=== PATIENT | male | born 1985 | race Caucasian/White ===

== ENCOUNTER 2018-03-13 22:07 | Emergency (ER) | payer SELFPAY ==
[~2018-03-13] VITALS: Ht 165.1 cm; Wt 70.0 kg
[2018-03-13] MEDS ORDERED: LORazepam 2 MG/ML VIAL IM ONE (22:45)
[2018-03-13] MEDS ORDERED: DiphenhydrAMINE HCL 50 MG/ML VIAL IM ONE (22:45)
[2018-03-13] MEDS ORDERED: HALOPERIDOL LACTATE 5 MG/ML VIAL IM ONE (22:45)
[2018-03-13] MEDS ORDERED: HIV MED PO (22:48)
[2018-03-13] MEDS ORDERED: EFAV1TAB PO (22:48)
[2018-03-14 02:35] VITALS: BP 133/70
== END 2018-03-14 02:38 | disposition home or self-care (01) ==
LOC: EMS 22:11
DX: F29 Unspecified psychosis not due to a substance or known physiological condition (principal); F15.10 Other stimulant abuse, uncomplicated; F17.210 Nicotine dependence, cigarettes, uncomplicated
CPT/HCPCS: 96372; 99291; 99406; J1200; J1630; J2060

== ENCOUNTER 2019-01-17 19:26 | Emergency (ER) | payer SELFPAY ==
[~2019-01-17] VITALS: Ht 170.2 cm; Wt 79.5 kg
[~2019-01-17 19:26] MED LIST: EFAV1TAB PO; HIV MED PO
[2019-01-17 20:43] LABS: GLUCOSE,POINT OF CARE 77 MG/DL (70-110)
[2019-01-17] MEDS ORDERED: LIDOCAINE 1% 10 ML VIAL INJ ONE (21:45)
[2019-01-17] MEDS ORDERED: BACITRACIN 0.9 GM PACKET OINTMENT TP ONE (22:15)
[2019-01-17 22:30] VITALS: BP 135/73
== END 2019-01-17 22:48 | disposition home or self-care (01) ==
LOC: EMS 19:28
DX: S91.201A Unspecified open wound of right great toe with damage to nail, initial encounter (principal); S00.81XA Abrasion of other part of head, initial encounter; S70.211A Abrasion, right hip, initial encounter; F32.9 Major depressive disorder, single episode, unspecified; E78.00 Pure hypercholesterolemia, unspecified; F19.90 Other psychoactive substance use, unspecified, uncomplicated; X58.XXXA Exposure to other specified factors, initial encounter; Y93.89 Activity, other specified; Y92.89 Other specified places as the place of occurrence of the external cause; Y99.8 Other external cause status
CPT/HCPCS: 82962; 99283; J3490

== ENCOUNTER 2021-12-07 12:48 | Inpatient (IN) | payer OTHER, MEDICAID ==
[~2021-12-07] VITALS: Ht 165.1 cm; Wt 62.9 kg
[2021-12-07] MEDS ORDERED: HALOPERIDOL LACTATE 5 MG/ML VIAL IM ONE (14:00)
[2021-12-07] MEDS ORDERED: DiphenhydrAMINE HCL 50 MG/ML VIAL IM ONE (14:00)
[2021-12-07] MEDS ORDERED: LORazepam 2 MG/ML VIAL IM ONE (14:00)
[2021-12-07 14:53] LABS: BASOPHILS % (AUTO) 0.3 % (0.0-2.0); EOSINOPHILS % (AUTO) 0 % (1.0-6.0); HEMATOCRIT 40.2 % (41-53); HEMOGLOBIN 13.6 g/dL (13.5-17.5); LYMPHOCYTES # (AUTO) 1.1 K/uL (1.0-4.8); MEAN CORPUSCULAR HEMOGLOBIN 29.4 pg (26.0-34.0); MEAN CORPUSCULAR HGB CONC 33.8 G/dL (31.0-37.0); MEAN CORPUSCULAR VOLUME 87 fL (80-100); MONOCYTES # (AUTO) 0.7 K/uL (0.1-1.0); MONOCYTES % (AUTO) 7.4 % (2.0-9.0); NEUTROPHILS # (AUTO) 7.6 K/uL (1.8-7.7); NEUTROPHILS % (AUTO) 80.3 % (40.0-70.0); PLATELET COUNT (AUTO) 249 K/uL (150-450); RED BLOOD CELL COUNT(AUTO) 4.62 MIL/uL (4.50-5.90); RED CELL DISTRIBUTION WIDTH 13.9 % (11.5-14.5)
[2021-12-07 15:10] LABS: ANION GAP 14 mmol/L (8-16); CALCIUM, TOTAL 8.7 mg/dL (8.8-10.5); CARBON DIOXIDE 24 mmol/L (22-29); CHLORIDE 100 mmol/L (98-107); CREATININE 1.29 mg/dL (0.60-1.30); GLOMERULAR FILTR. RATE CALC > 60 mL/min (>60); GLUCOSE,RANDOM 92 mg/dL (70-110); POTASSIUM 3.4 mmol/L (3.5-5.1); SODIUM SERUM 138 mmol/L (136-145); UREA NITROGEN, BLOOD 40 mg/dL (7-18)
[2021-12-07 15:15] LABS: ALANINE AMINOTRANSFERASE 135 U/L (12-78); ALBUMIN 3.7 g/dL (3.4-5.0); ALKALINE PHOSPHATASE 53 U/L (46-116); ASPARTATE AMINOTRANSFERASE 131 U/L (15-37); BILIRUBIN,TOTAL 2.4 mg/dL (0.1-1.0); TOTAL PROTEIN, SERUM 7.4 g/dL (6.4-8.2)
[2021-12-07] MEDS ORDERED: ZOLPIDEM TARTRATE 10 MG TABLET PO PRN (15:45)
[2021-12-07] MEDS ORDERED: HALOPERIDOL 5 MG TABLET PO PRN (15:45)
[2021-12-08] MEDS ORDERED: INFLUENZA VIRUS VACCINE QVS 2021-22 (6MO+)/PF 60 MCG/0.5 ML SYRINGE IM. ONE (05:15)
[2021-12-08] MEDS ORDERED: PNEUMOCOCCAL VACCINE POLYVALENT 0.5 ML VIAL [PPSV23] IM. ONE (05:15)
[2021-12-08] MEDS ORDERED: MAG HYDROX/AL HYDROX/SIMETH ES 30 ML SUSPENSION UDCUP PO PRN (07:00)
[2021-12-08] MEDS ORDERED: NICOTINE 14 MG/24 HOUR PATCH TD PRN (07:00)
[2021-12-08] MEDS ORDERED: GuaiFENesin/D-METHORPHAN [SUGAR-FREE] 200-20MG/10 ML SYRUP UDCUP PO PRN (07:00)
[2021-12-08] MEDS ORDERED: ACETAMINOPHEN 325 MG TABLET PO PRN (07:00)
[2021-12-08] MEDS ORDERED: ONDANSETRON HCL 4 MG TABLET PO PRN (07:00)
[2021-12-08] MEDS ORDERED: PETROLATUM,WHITE 28 GM JELLY TP PRN (07:00)
[2021-12-08] MEDS ORDERED: MAGNESIUM HYDROXIDE SUSPENSION 30 ML UDCUP PO PRN (07:00)
[2021-12-08] MEDS ORDERED: ALBUTEROL SULFATE HFA 90 MCG/PUFF 8 GM INHALER IH PRN (07:00)
[2021-12-08] MEDS ORDERED: DOCUSATE SODIUM 100 MG CAPSULE PO PRN (07:00)
[2021-12-08] MEDS ORDERED: CloNIDine HCL 0.1 MG TABLET PO PRN (07:00)
[2021-12-08] MEDS ORDERED: IBUPROFEN 400 MG TABLET PO PRN (07:00)
[2021-12-08] MEDS ORDERED: LOPERAMIDE HCL 2 MG CAPSULE PO PRN (07:00)
[2021-12-08] MEDS: TENOFOVIR PO SCH (09:00)
[2021-12-08] MEDS: EFAVIRENZ PO SCH (09:00)
[2021-12-08] MEDS: EMTRICITAB PO SCH (09:00)
[2021-12-08 16:45] VITALS: BP 100/65
[2021-12-08] MEDS: LORazepam 2 MG TABLET PO PRN (20:42)
[2021-12-09 04:44] VITALS: BP 114/75
[2021-12-09] MEDS: EMTRICITAB PO SCH (08:45)
[2021-12-09] MEDS: MULTIVITAMINS WITH MINERALS, THERAPEUTIC TABLET PO SCH (08:45)
[2021-12-09] MEDS: TENOFOVIR PO SCH (08:45)
[2021-12-09] MEDS: EFAVIRENZ PO SCH (08:45)
[2021-12-09] MEDS: LORazepam 2 MG TABLET PO PRN (08:45)
[2021-12-09 08:48] LABS: HEMOGLOBIN A1C 5.8 % (3.8-5.6)
[2021-12-09 09:04] LABS: CHOL/HDL RATIO 3.6 (4.2-7.3); FREE T4 (FREE THYROXINE) 1.05 ng/dL (0.76-1.46); POTASSIUM 3.7 mmol/L (3.5-5.1); THYROID STIMULATING HORMONE 1.28 uIU/mL (0.36-3.74)
[2021-12-09 09:49] VITALS: BP 112/74
[2021-12-09 10:21] LABS: GLUCOMETER DEV NAME(LOC) POC.BV
[2021-12-09 16:48] VITALS: BP 107/66
[2021-12-10 05:43] VITALS: BP 114/70
[2021-12-10] MEDS: EFAVIRENZ PO SCH (09:00)
[2021-12-10] MEDS: EMTRICITAB PO SCH (09:00)
[2021-12-10] MEDS: MULTIVITAMINS WITH MINERALS, THERAPEUTIC TABLET PO SCH (09:00)
[2021-12-10] MEDS: TENOFOVIR PO SCH (09:00)
[2021-12-10 11:15] VITALS: BP 112/72
== END 2021-12-10 15:20 | disposition home or self-care (01) | DRG 885 ==
LOC: EMS 12:49 → B3A 23:20
PROVIDERS: ADMIT Psychiatry & Neurology Child & Adolescent Psychiatry; ATTEND Psychiatry & Neurology Child & Adolescent Psychiatry
DX: F29 Unspecified psychosis not due to a substance or known physiological condition (principal); F10.10 Alcohol abuse, uncomplicated; E78.00 Pure hypercholesterolemia, unspecified; E78.5 Hyperlipidemia, unspecified; E87.6 Hypokalemia; Z20.822 Contact with and (suspected) exposure to COVID-19; R74.01 Elevation of levels of liver transaminase levels; Z79.899 Other long term (current) drug therapy
CPT/HCPCS: 76705; 80053; 80061; 83036; 84132; 84439; 84443; 85025; 99285; G0480; J1200; J1630; J2060

== ENCOUNTER 2022-11-25 13:33 | Emergency (ER) | payer OTHER, MEDICAID ==
[~2022-11-25] VITALS: Ht 172.7 cm; Wt 77.3 kg
[~2022-11-25 13:33] MED LIST changes: -HIV MED PO
[2022-11-25] MEDS: LORazepam 2 MG/ML VIAL IM ONE ×2 (13:56→14:35)
[2022-11-25] MEDS ORDERED: HALOPERIDOL LACTATE 5 MG/ML VIAL IM ONE (14:00)
[2022-11-25] MEDS ORDERED: DiphenhydrAMINE HCL 50 MG/ML VIAL IM ONE (14:00)
[2022-11-25 17:12] LABS: BASOPHILS % (AUTO) 0.4 % (0.0-2.0); EOSINOPHILS % (AUTO) 0 % (1.0-6.0); HEMATOCRIT 44.7 % (41-53); HEMOGLOBIN 14.9 g/dL (13.5-17.5); LYMPHOCYTES # (AUTO) 0.9 K/uL (1.0-4.8); LYMPHOCYTES % (AUTO) 6.4 % (22.0-44.0); MEAN CORPUSCULAR HEMOGLOBIN 29.8 pg (26.0-34.0); MEAN CORPUSCULAR HGB CONC 33.3 G/dL (31.0-37.0); MEAN CORPUSCULAR VOLUME 90 fL (80-100); MONOCYTES # (AUTO) 0.8 K/uL (0.1-1.0); MONOCYTES % (AUTO) 5.6 % (2.0-9.0); NEUTROPHILS # (AUTO) 12.9 K/uL (1.8-7.7); PLATELET COUNT (AUTO) 207 K/uL (150-450)
[2022-11-25 17:15] LABS: NEUTROPHILS % (AUTO) 87.6 % (40.0-70.0)
[2022-11-25 17:21] LABS: ANION GAP 14 mmol/L (8-16); CALCIUM, TOTAL 7.8 mg/dL (8.8-10.5); CARBON DIOXIDE 21 mmol/L (22-29); CHLORIDE 108 mmol/L (98-107); CREATININE 1.64 mg/dL (0.60-1.30); GLOMERULAR FILTR. RATE CALC 48 mL/min (>60); GLUCOSE,RANDOM 92 mg/dL (70-110); SODIUM SERUM 143 mmol/L (136-145); UREA NITROGEN, BLOOD 39 mg/dL (7-18)
[2022-11-25 17:31] LABS: ALANINE AMINOTRANSFERASE 535 U/L (12-78); ALBUMIN 3.4 g/dL (3.4-5.0); ALKALINE PHOSPHATASE 37 U/L (46-116); BILIRUBIN,TOTAL 1.7 mg/dL (0.1-1.0); TOTAL PROTEIN, SERUM 6.7 g/dL (6.4-8.2)
[2022-11-25 17:32] LABS: ASPARTATE AMINOTRANSFERASE 1427 U/L (15-37)
[2022-11-25 19:30] VITALS: BP 146/74
[2022-11-25 19:53] LABS: AMPHET/METH SCREEN,URINE POSITIVE (NEGATIVE); BARBITURATE SCREEN, URINE NEGATIVE (NEGATIVE); BENZODIAZEPINES SCREEN,URINE NEGATIVE (NEGATIVE); CANNABINOID SCREEN,URINE NEGATIVE (NEGATIVE); COCAINE SCREEN,URINE POSITIVE (NEGATIVE); METHADONE SCREEN, URINE NEGATIVE (NEGATIVE); OPIATE SCREEN,URINE NEGATIVE (NEGATIVE); PHENCYCLIDINE SCREEN,URINE NEGATIVE (NEGATIVE)
== END 2022-11-25 20:40 | disposition left against medical advice (07) ==
LOC: EMS 13:34
DX: E78.5 Hyperlipidemia, unspecified (principal); F32.A Depression, unspecified; E78.00 Pure hypercholesterolemia, unspecified; F15.90 Other stimulant use, unspecified, uncomplicated; V99.XXXA Unspecified transport accident, initial encounter; Y93.89 Activity, other specified; Y92.89 Other specified places as the place of occurrence of the external cause; Y99.8 Other external cause status
CPT/HCPCS: 99284; 80053; 85025; 36415; 72170; 96372; 80307 ×2; G0480; J1200; J1630; J2060